=== PATIENT | male | born 1990 | race Caucasian/White ===

== ENCOUNTER 2018-08-08 08:17 | Emergency (ER) | payer BC, MEDICAID ==
[2018-08-08 08:28] VITALS: BMI 24.2
[2018-08-08] MEDS ORDERED: Sodium Chloride 0.9% 1,000 ML IV STA (08:55)
--- NOTE | 2018-08-08 09:40 | ED PDOC ---
HPI: Headache Time Seen by Provider: 08/08/18 08:49 Chief Complaint (Nursing): Headache Chief Complaint (Provider): Headache History Per: Patient History/Exam Limitations: no limitations Onset/Duration Of Symptoms: Days (x2) Current Symptoms Are (Timing): Still Present Associated Symptoms: Photophobia, Nausea. denies: Vomiting Additional Complaint(s): 27 y/o male with a PMHx of Cluster Headaches presents to the ED complaining of right sided headache, onset two days ago. Patient reports current headache is similar to ones he has had in the past. Patient states headaches have been coming and going for approximately one year and is usually right sided. Patient reports pain usually is relieved by Sumatriptan. However, patient ran out of medication. Patient additionally reports of seeing a specialist in [place] for headache and was given a needle injection in the back of the head for symptoms 2 days ago with relief. Patient is unsure what injection he was given. Patient states headache is associated with right sided neck and face pain, photophobia, nausea and upper back pain. Patient reports he was given oxygen for symptom relief. Denies medication use for symptom relief, numbness, tingling, cough, weakness, congestion, vomiting and diarrhea. PMD: [place] Past Medical History Reviewed: Historical Data, Nursing Documentation, Vital Signs Vital Signs: Last Vital Signs Temp 97.7 F 08/08/18 08:26 Pulse 65 08/08/18 08:26 Resp 16 08/08/18 08:26 BP 132/60 08/08/18 08:26 Pulse Ox 100 08/08/18 08:26 - Medical History PMH: Asthma Other PMH: Cluster Headaches - Surgical History Surgical History: No Surg Hx - Family History Family History: States: Unknown Family Hx - Social History Alcohol: None Drugs: Denies - Home Medications Home Medications: Ambulatory Orders Medication Instructions Recorded Amoxicillin/Clavulanate [Augmentin 1 tab PO Q12 #13 tab 06/26/16 875 MG-125 MG] Naproxen 500 mg PO BID PRN #20 tab 06/26/16 Albuterol HFA [Ventolin HFA 90 2 puff IH Q4 PRN #1 inh 09/15/16 mcg/actuation (8 g)] Fluticasone/Salmeterol 250/50 1 puff IH BID #1 inh 09/15/16 [Advair Diskus] Prednisone 50 mg PO DAILY #5 tablet 09/15/16 Amoxicillin/Clavulanate [Augmentin 1 tab PO BID 7 Days tab 08/08/18 875 MG-125 MG] Ibuprofen [Motrin] 600 mg PO TID 7 Days tab 08/08/18 - Allergies Allergies/Adverse Reactions: Allergies Allergy/AdvReac Type Severity Reaction Status Date / Time No Known Allergies Allergy Verified 09/15/16 03:28 Review of Systems ROS Statement: Except As Marked, All Systems Reviewed And Found Negative ENT: Negative for: Nose Congestion Respiratory: Negative for: Cough Gastrointestinal: Positive for: Nausea. Negative for: Vomiting, Diarrhea Musculoskeletal: Positive for: Neck Pain (right), Other (Right sided facial pain) Neurological: Positive for: Headache, Other (Photophobia). Negative for: Numbness (tingling) Physical Exam - Reviewed Nursing Documentation Reviewed: Yes Vital Signs Reviewed: Yes - Physical Exam Appears: Positive for: Uncomfortable, In Acute Distress Head Exam: Positive for: ATRAUMATIC, NORMAL INSPECTION (No tenderness to palpation. ), NORMOCEPHALIC Skin: Positive for: Normal Color, Warm, Dry Eye Exam: Positive for: Normal appearance, EOMI, PERRL, Other (No tenderness to the methodist area. No bulging temporal artery noted) ENT: Positive for: Normal ENT Inspection. Negative for: Nasal Congestion Neck: Positive for: Normal, Painless ROM Cardiovascular/Chest: Positive for: Regular Rate, Rhythm. Negative for: Murmur Respiratory: Positive for: Normal Breath Sounds. Negative for: Respiratory Distress Gastrointestinal/Abdominal: Positive for: Normal Exam, Soft. Negative for: Tenderness Back: Positive for: Normal Inspection. Negative for: L CVA Tenderness, R CVA Tenderness Extremity: Positive for: Normal ROM. Negative for: Tenderness, Pedal Edema, Deformity Neurologic/Psych: Positive for: Alert, interpretive naturalist II-XII (intact), Oriented, Other (neg kernig and brudzinski). Negative for: Motor/Sensory Deficits, Aphasia, Facial Droop - Laboratory Results Result Diagrams: 08/08/18 09:34 08/08/18 09:34 Interpretation Of Abn Labs: 16.5 wbc - ECG O2 Sat by Pulse Oximetry: 100 (RA) Pulse Ox Interpretation: Normal - CT Scan/US ct Other Rad Studies (CT/US): Read By Radiologist Other Rad Interpretation: no acute - Progress ED Course And Treament: 1208: Spoke with Dr. Lai. He injected the subcutaneous occiput to block the nerve for headaches. Pt. well known to him. He wants pt. to get 6mg sumatrip tain, SC and oxygen 7L mask. 1401: Feels much better. AAOx3. Pain free. Tolerated PO. Hx of headaches and similar to that when he came in. Not worst headache of his life. Ambulated with no issues. Will tx for sinusitis. Medical Decision Making Medical Decision Making: Time: 926 Plan: -- Toradol 15 mg IVP -- Reglan 10 mg IV -- Sodium Chloride 0.9% IV 1000 mls/hr -- CBC with differentials -- CMP -- CT Head w/o Contrast Time: [address] RESULTS FINDINGS: HEMORRHAGE: No intracranial hemorrhage. BRAIN: No mass effect or edema. No atrophy or chronic microvascular ischemic changes. VENTRICLES: Unremarkable. No hydrocephalus. CALVARIUM: Unremarkable. PARANASAL SINUSES: Maxillary, sphenoid and bilateral ethmoid sinus mucosal thickening. MASTOID AIR CELLS: Unremarkable as visualized. No inflammatory changes. OTHER FINDINGS: None. IMPRESSION: No acute intracranial pathology. Sinus disease as above Scribe Attestation: Documented by Rosalie Maya acting as a scribe for Bob Benson MD. Provider Scribe Attestation: All medical record entries made by the Scribe were at my direction and personally dictated by me. I have reviewed the chart and agree that the record accurately reflects my personal performance of the history, physical exam, medical decision making, and the department course for this patient. I have also personally directed, reviewed, and agree with the discharge instructions and disposition. Disposition - Clinical Impression Clinical Impression: Cluster headache, Sinusitis - Patient ED Disposition Is Patient to be Admitted: No Counseled Patient/Family Regarding: Studies Performed, Diagnosis, Need For Followup, Rx Given - Disposition Referrals: [facility] [place] [Outside] - 08/10/18 Disposition: Routine/Home Disposition Time: 14:02 Condition: STABLE Additional Instructions: Return if not better in 3 days. See your neurologist and pain specialist without fail. Prescriptions: Amoxicillin/Clavulanate [Augmentin 875 MG-125 MG] 1 tab PO BID 7 Days tab Ibuprofen [Motrin] 600 mg PO TID 7 Days tab Instructions: Cluster Headache, Sinusitis in Adults Forms: [facility] (Swiss), [facility] ED School/Work Excuse
[2018-08-08 09:47] LABS: BASO # 0.1 K/uL (0.0-0.2); BASO % 0.6 % (0.0-2.0); EOS # 0.2 K/uL (0.0-0.7); EOS % 0.9 % (0.0-4.0); HEMOGLOBIN 15.7 g/dL (12.0-18.0); LYMPH # 2.7 K/uL (1.0-4.3); LYMPH % 16.3 % (20.0-40.0); MEAN CELL VOLUME 88.9 fl (80.0-94.0); MEAN CORPUSCULAR HEMOGLOBIN 29.9 pg (27.0-31.0); MEAN CORPUSCULAR HGB CONC 33.6 g/dL (33.0-37.0); MEAN PLATELET VOLUME 7.4 fl (7.2-11.7); MONO % 5.9 % (0.0-10.0); NEUT # 12.6 K/uL (1.8-7.0); NEUT % 76.3 % (50.0-75.0); RBC 5.24 Mil/uL (4.40-5.90); WHITE BLOOD COUNT 16.5 K/uL (4.8-10.8)
[2018-08-08 09:58] LABS: ALB/GLOB RATIO 1.2 (1.0-2.1); ALBUMIN 4.1 g/dL (3.5-5.0); ALT/SGPT 25 U/L (21-72); AST/SGOT 25 U/L (17-59); BLOOD UREA NITROGEN 14 mg/dl (9-20); CALCIUM 8.9 mg/dL (8.4-10.2); GFR NON-AFRICAN AMERICAN > 60
--- NOTE | 2018-08-08 10:19 | CT ---
Date of service: 08/08/2018 PROCEDURE: CT HEAD WITHOUT CONTRAST. HISTORY: headache COMPARISON: CT head dated 06/26/2016 TECHNIQUE: Axial computed tomography images were obtained through the head/brain without intravenous contrast. Radiation dose: Total exam DLP = 865.9 mGy-cm. This CT exam was performed using one or more of the following dose reduction techniques: Automated exposure control, adjustment of the mA and/or kV according to patient size, and/or use of iterative reconstruction technique. FINDINGS: HEMORRHAGE: No intracranial hemorrhage. BRAIN: No mass effect or edema. No atrophy or chronic microvascular ischemic changes. VENTRICLES: Unremarkable. No hydrocephalus. CALVARIUM: Unremarkable. PARANASAL SINUSES: Maxillary, sphenoid and bilateral ethmoid sinus mucosal thickening. MASTOID AIR CELLS: Unremarkable as visualized. No inflammatory changes. OTHER FINDINGS: None. IMPRESSION: No acute intracranial pathology. Sinus disease as above
[2018-08-08 12:10] VITALS: RESP 19; TEMP 97
[2018-08-08 14:22] VITALS: BP 110/78; PULSE 78; O2SAT 98
== END 2018-08-08 14:23 | disposition home or self-care (01) ==
LOC: H.ER 08:17
DX: G44.009 Cluster headache syndrome, unspecified, not intractable (principal); J32.9 Chronic sinusitis, unspecified; J45.909 Unspecified asthma, uncomplicated
CPT/HCPCS: 70450; 80053; 85025; 96361; 96365; 96372; 96375; 99285; J1885; J2765; J3030; J7030

== ENCOUNTER 2018-12-19 02:29 | Emergency (ER) | payer BC ==
[2018-12-19 02:31] VITALS: BMI 24.2
[2018-12-19 02:41] VITALS: RESP 16; O2SAT 98
[2018-12-19] MEDS ORDERED: Albuterol-Ipratrop 3 mg / 0.5 (3 ml) UD INH STA ×3 (02:43→02:44)
--- NOTE | 2018-12-19 02:55 | ED PDOC ---
HPI: Asthma Time Seen by Provider: 12/19/18 02:41 Chief Complaint (Nursing): Respiratory Distress Chief Complaint (Provider): Respiratory Distress History Per: Patient History/Exam Limitations: no limitations Additional Complaint(s): Fawad Padilla is a 28 year old male with a past medical history of ashtma, who presents to the emergency department complaining of having asthma exacerbation. Patient states that he has taken inhaler but has not had any improvement in symptoms. He states that he was intubated x6-7 years ago and has never been hospitalized. Patient further denies having any fever, chest pain or leg pain. PMD: [place] Past Medical History Reviewed: Historical Data, Nursing Documentation, Vital Signs Vital Signs: Last Vital Signs Temp 97.7 F 12/19/18 02:38 Pulse 70 12/19/18 02:38 Resp 16 12/19/18 02:38 BP 123/82 12/19/18 02:38 Pulse Ox 98 12/19/18 02:38 - Medical History PMH: Asthma - Surgical History Surgical History: No Surg Hx - Family History Family History: States: Unknown Family Hx - Home Medications Home Medications: Ambulatory Orders Medication Instructions Recorded Amoxicillin/Clavulanate [Augmentin 1 tab PO Q12 #13 tab 06/26/16 875 MG-125 MG] Naproxen 500 mg PO BID PRN #20 tab 06/26/16 Albuterol HFA [Ventolin HFA 90 2 puff IH Q4 PRN #1 inh 09/15/16 mcg/actuation (8 g)] Fluticasone/Salmeterol 250/50 1 puff IH BID #1 inh 09/15/16 [Advair Diskus] Prednisone 50 mg PO DAILY #5 tablet 09/15/16 Amoxicillin/Clavulanate [Augmentin 1 tab PO BID 7 Days tab 08/08/18 875 MG-125 MG] Ibuprofen [Motrin] 600 mg PO TID 7 Days tab 08/08/18 Rizatriptan Benzoate [Maxalt] 10 mg PO DAILY PRN #20 tablet 08/08/18 Albuterol HFA [Ventolin HFA 90 2 puff IH [id number] #1 pump 12/19/18 mcg/actuation (8 g)] predniSONE [predniSONE Tab] 40 mg PO DAILY 4 Days #8 tab 12/19/18 - Allergies Allergies/Adverse Reactions: Allergies Allergy/AdvReac Type Severity Reaction Status Date / Time No Known Allergies Allergy Verified 09/15/16 03:28 Review of Systems ROS Statement: Except As Marked, All Systems Reviewed And Found Negative Constitutional: Negative for: Fever Cardiovascular: Negative for: Chest Pain Respiratory: Positive for: Shortness of Breath Musculoskeletal: Negative for: Leg Pain Physical Exam - Reviewed Nursing Documentation Reviewed: Yes Vital Signs Reviewed: Yes - Physical Exam Appears: Positive for: Non-toxic, No Acute Distress Head Exam: Positive for: ATRAUMATIC, NORMOCEPHALIC Skin: Positive for: Normal Color, Warm, Dry Eye Exam: Positive for: Normal appearance ENT: Positive for: Normal ENT Inspection Neck: Positive for: Normal, Painless ROM, Supple Cardiovascular/Chest: Negative for: Regular Rate, Rhythm, Murmur Respiratory: Positive for: Wheezing (bilateral diffuse) Extremity: Negative for: Calf Tenderness - ECG O2 Sat by Pulse Oximetry: 98 (RA) Pulse Ox Interpretation: Normal Medical Decision Making Medical Decision Making: Time: 024 Impression: acute asthma exacerbation Plan: --Albuterol 3 ml INH x3 --Peak flow pre/post tx x3 --prednisone Oral solution 60 mg PO Patient will be most likely discharged home after reassessment. 0445 Patient with resolved symptoms. Will get Rx for Ventolin and an additional x4 days of prednisone and instructed to follow up with PMD next week. Scribe Attestation: Documented by Matthias Galarza acting as a scribe for Lisset Robin MD. Provider Scribe Attestation: All medical record entries made by the Scribe were at my direction and personally dictated by me. I have reviewed the chart and agree that the record accurately reflects my personal performance of the history, physical exam, medical decision making, and the department course for this patient. I have also personally directed, reviewed, and agree with the discharge instructions and disposition. Disposition - Clinical Impression Clinical Impression: Asthma exacerbation attacks - Disposition Disposition: Routine/Home Disposition Time: 04:47 Condition: IMPROVED Prescriptions: Albuterol HFA [Ventolin HFA 90 mcg/actuation (8 g)] 2 puff IH [id number] #1 pump predniSONE [predniSONE Tab] 40 mg PO DAILY 4 Days #8 tab Instructions: Asthma, Adult (DC) Forms: [facility] [employer] [facility] (Hungarian) Print Language: ROMANIAN
[2018-12-19] MEDS ORDERED: Albuterol-Ipratrop 3 mg / 0.5 (3 ml) UD ONE (03:12)
[2018-12-19 04:48] VITALS: BP 110/78; PULSE 77; TEMP 97.6
== END 2018-12-19 04:53 | disposition home or self-care (01) ==
LOC: H.ER 02:29
DX: J45.901 Unspecified asthma with (acute) exacerbation (principal)